=== PATIENT | male | born 1950 | race Caucasian/White ===

== ENCOUNTER 2019-02-15 06:48 | Emergency (ER) | payer MEDICARE ==
[~2019-02-15] VITALS: Ht 182.9 cm; Wt 91.0 kg
[2019-02-15] MEDS ORDERED: OXYCODONE HCL/ACETAMINOPHEN 5/325MG TABLET PO ONE (07:15)
[2019-02-15 08:12] VITALS: BP 147/83
== END 2019-02-15 08:34 | disposition home or self-care (01) ==
LOC: ER 06:48
DX: M54.5 Low back pain (principal); G89.29 Other chronic pain; C43.9 Malignant melanoma of skin, unspecified; F32.9 Major depressive disorder, single episode, unspecified
CPT/HCPCS: 99283

== ENCOUNTER 2019-02-18 15:11 | Emergency (ER) | payer MEDICARE ==
[~2019-02-18] VITALS: Ht 182.9 cm; Wt 90.0 kg
[2019-02-18 16:17] VITALS: BP 154/71
== END 2019-02-18 17:30 | disposition home or self-care (01) ==
LOC: ER 15:11
DX: H60.91 Unspecified otitis externa, right ear (principal); G89.29 Other chronic pain; M54.9 Dorsalgia, unspecified; Z85.820 Personal history of malignant melanoma of skin
CPT/HCPCS: 99283